=== PATIENT | female | born 1955 | race Asian ===

== ENCOUNTER 2019-04-10 17:08 | Emergency (ER) | payer SELFPAY ==
[~2019-04-10] VITALS: Ht 157.5 cm; Wt 54.4 kg
[2019-04-10] MEDS ORDERED: NKM (17:16)
[2019-04-10 17:22] VITALS: BP 121/79
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
[2019-04-10] MEDS ORDERED: ELIQUIS2.5 MG PO (17:38)
[2019-04-10] MEDS ORDERED: Acetaminophen 500mg (ES) tab ORAL ONE (17:45)
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
--- NOTE | 2019-04-10 17:55 | NUR ---
ED Nurse Note: pt went to ct with tech
--- NOTE | 2019-04-10 18:05 | NUR ---
ED Nurse Note: pt went back from ct with tech
[2019-04-10] MEDS ORDERED: Isovue-370 150ml vial INJ PRN (18:30)
--- NOTE | 2019-04-10 18:41 | Diagnostic Imaging Report ---
Indication: Status post trauma Technique: Continuous helical CT scanning of the head was performed utilizing automated exposure control without intravenous contrast material. Axial and coronal reconstructions were obtained. COMPARISON: None available CT dose: Total DLP 1611.53 mGycm; CTDI vol 70.38,9.06 mGy FINDINGS: There is no acute intracranial hemorrhage, mass effect or cortical edema. There are patchy subcortical and periventricular white matter hypodensities, likely representing chronic ischemic microvascular disease. No hydrocephalus. There is left occipital cortical irregularity with apparent medication of the left lateral ventricle with the quadrigeminal cistern. There are scattered coarse calcifications in the supratentorial cortex, which are nonspecific and may be related to prior infection/inflammation.. The posterior fossa and fourth ventricle are unremarkable. Sellar and suprasellar regions are grossly unremarkable. Mastoid air cells are clear. There is mild bilateral maxillary sinus mucosal thickening. No focal lesions of the bony calvarium or soft tissues of the scalp are seen. IMPRESSION: 1. No acute intracranial hemorrhage, mass effect, or acute territorial infarct. 2. Cortical irregularity of the left occipital lobe which may represent encephalomalacia from old infarct versus cortical migration developmental abnormality such as schizencephaly. MRI brain with contrast is recommended in the absence of recent MRI studies for comparison. These findings are concordant with the [facility] preliminary report. The CT scanner at [facility] is accredited by the [employer] and the scans are performed using protocols designed to limit radiation exposure to as low as reasonably achievable to attain images of sufficient resolution adequate for diagnostic evaluation.
--- NOTE | 2019-04-10 18:45 | Diagnostic Imaging Report ---
CT CERVICAL SPINE WITHOUT CONTRAST AND CT THORACIC SPINE WITHOUT CONTRAST INDICATION: Pain status post trauma. Technique: CT cervical spine was performed utilizing automated exposure control without intravenous contrast material. Axial and coronal images were generated. CT dose: Total DLP 535 + 1611 mGycm; CTDI vol .25 + .25 + 13.52 + 0.15 + 70.38 + 9.06 mGy COMPARISON: Same day CT head, same-day CTA chest FINDINGS: CERVICAL SPINE: Bones are diffusely demineralized. Normal cervical lordosis is reversed, which may be partly positional. Atlantodental intervals are preserved. Dens is intact. No acute fracture or subluxation. Vertebral body heights are preserved. There are multilevel discogenic degenerative changes characterized by endplate osteophyte formation, subchondral sclerosis, and uncovertebral hypertrophy leading to multilevel foraminal narrowing, most prominent at the levels of C4-C5. THORACIC SPINE: Alignment is anatomic. Bones are diffusely demineralized. No acute fracture or subluxation. No spondylolisthesis. Vertebral body heights are preserved. There are mild multilevel discogenic degenerative changes characterized by endplate osteophyte formation. No prevertebral soft tissue swelling. ADDITIONAL FINDINGS: Please refer to separately dictated CT chest for thoracic findings. Please refer to separately dictated same day CT head for intracranial findings. IMPRESSION: No acute fracture or malalignment in the cervical or thoracic spines. These findings are concordant with the [facility] preliminary report. The CT scanner at [facility] is accredited by the [employer] and the scans are performed using protocols designed to limit radiation exposure to as low as reasonably achievable to attain images of sufficient resolution adequate for diagnostic evaluation.
[2019-04-10 18:46] LABS: BASOPHILS % (AUTO) 1.2 % (0.0-2.0); EOSINOPHILS % (AUTO) 1.6 % (0.0-3.0); HEMATOCRIT 38.6 % (37.0-47.0); LYMPHOCYTES % (AUTO) 26.7 % (20.0-45.0); MEAN CORPUSCULAR VOLUME 91 FL (80-99); MONOCYTES % (AUTO) 9.7 % (1.0-10.0); NEUTROPHILS % (AUTO) 60.8 % (45.0-75.0); PLATELET COUNT 168 K/UL (150-450); RED BLOOD COUNT 4.22 M/UL (4.20-5.40); WHITE BLOOD COUNT 4.5 K/UL (4.8-10.8)
--- NOTE | 2019-04-10 18:49 | Diagnostic Imaging Report ---
Indication: Reason For Exam: INJ Technique: Single AP view of the chest. Comparison: Same day CT chest Findings: The cardiomediastinal silhouette is obscured by herniated abdominal contents and opacification and opacification of the left hemithorax.. Right lung is clear. No right pneumothorax or right pleural effusion. No acute osseous abnormality. IMPRESSION: Clear right lung. Complete opacification of the left hemithorax with herniation of the abdominal organs, presumably postsurgical.
[2019-04-10 18:54] LABS: ANION GAP 3 mmol/L (5-15); BLOOD UREA NITROGEN 16 mg/dL (7-18); CALCIUM 9.4 MG/DL (8.5-10.1); CARBON DIOXIDE 30 MMOL/L (21-32); CHLORIDE 107 MMOL/L (98-107); CREATININE 0.7 MG/DL (0.55-1.30); POTASSIUM 3.9 MMOL/L (3.5-5.1); SODIUM 140 MMOL/L (136-145)
[2019-04-10 18:57] LABS: ALANINE AMINOTRANSFERASE 26 U/L (12-78); ALBUMIN 4.1 G/DL (3.4-5.0); ALBUMIN/GLOBULIN RATIO 1.3 (1.0-2.7); ALKALINE PHOSPHATASE 57 U/L (46-116); ASPARTATE AMINO TRANSFERASE 23 U/L (15-37); BILIRUBIN,TOTAL 0.5 MG/DL (0.2-1.0)
[2019-04-10 19:00] VITALS: BP 115/75
--- NOTE | 2019-04-10 19:08 | NUR ---
ED Nurse Note: pt went to ct with tech
--- NOTE | 2019-04-10 19:10 | NUR ---
ED Nurse Note: Recieved report from julieta Novak to resume care, pt is currently being taken down to imaging department for x-rays, pt is on [facility] awake, alert and oriented x 4, saline lcok intact and patent in right forearm area, pt has c-collar on, pt c/o pain at 7/10, recently medicated, will monitor for effectiveness and resume care when pt returns to departmen.
[2019-04-10 19:50] VITALS: BP 138/63
--- NOTE | 2019-04-10 20:21 | Diagnostic Imaging Report ---
CT ANGIOGRAM OF THE CHEST, ABDOMEN, AND PELVIS INDICATION: Trauma Technique: CT angiogram performed utilizing automated exposure control with intravenous contrast from the lower neck to the thighs. Axial, sagittal and coronal reconstructions were obtained. 3-D volumetric reconstructions were also performed. CT dose: Total DLP 600 mGycm; CTDI vol 0.15 + 8.11 + 73.00 + 8.63 mGy COMPARISON: None available FINDINGS: Pulmonary vasculature: Opacification of pulmonary arteries is excellent. Status post ligation of the left main pulmonary artery and resection of its branches. Main pulmonary artery is enlarged, measuring up to 3.2 cm. No pulmonary embolus. Lungs and pleura: Status post left pneumonectomy with associated postsurgical appearance including volume loss with subsequent shift of the mediastinal structures into the left hemithorax. . There is a 3 x 1.1 cm thick-walledcollection in the pneumonectomy bed. There is herniation of the abdominal organs including the stomach, spleen, and nonobstructed loops of colon into the left hemithorax. Mild right apical scarring. There is a solid 5 mm right apical nodule (6:11). There are clusters of tree in bud nodules with scattered subcentimeter pulmonary nodules, predominantly peripheral, with mosaic attenuation. No airspace consolidation. No pleural fluid. Heart and mediastinum: Mild cardiomegaly. Airway: Patent, without debris. Status post ligation of the left mainstem bronchus. Hepatobiliary:: Unremarkable Genitourinary:: Bilateral cortical irregularity of the kidneys may be developmental versus sequelae of small infarcts. Adrenals:: Unremarkable Pancreas:: Unremarkable Gastrointestinal:: No evidence of obstruction. Appendix is normal. Spleen: : Unremarkable Peritoneum:: Trace free fluid in the pelvis, likely physiologic. Lymph nodes: No pathologically enlarged lymph nodes. Vasculature:: No evidence of dissection or aneurysm. There is mild aortoiliac atherosclerotic calcification. Bones and soft tissues:: There are multilevel discogenic degenerative changes of the visualized spine. No acute fractures. IMPRESSION: 1. No evidence of solid organ injury, acute fracture, or dislocation. 2. Status post left pneumonectomy with associated volume loss; thick walled left apical collection may be postoperative ex vacuo pleural fluid versus chronic organized abscess. 3. Evidence of infectious/inflammatory small airways disease. 4. 5 mm right apical nodule which may be infectious/inflammatory, however high-risk patients, follow-up CT in one year is recommended. These findings are concordant with the [facility] preliminary report. The CT scanner at [facility] is accredited by the [employer] and the scans are performed using protocols designed to limit radiation exposure to as low as reasonably achievable to attain images of sufficient resolution adequate for diagnostic evaluation.
[2019-04-10 21:00] VITALS: BP 129/74
[2019-04-10] MEDS ORDERED: IBUPROFEN600 MG ORAL (21:05)
[2019-04-10] MEDS ORDERED: ACETAMINOPHEN325 M1 ORAL (21:05)
[2019-04-10] MEDS ORDERED: ROBAXIN-750750 MG PO (21:05)
--- NOTE | 2019-04-10 21:05 | NUR ---
ED Nurse Note: MD at bedside discussing pt results, pt spouse and daughter at bedside also, pt c-collar removed by md, pt is being d/c to home, awake, alert and oriented x 4, pt continues to c/o severe pain at 7/10 and asked md for meds before leaving, pt medicated with toradol, iv line removed without complications, pt is ambulatory, given f/u info and after care instructions and all parties re-verbalize s/s to monitor for and importance of f/u with pmd, nad noted during pt d/c to home, armband and iv line removed without complications.
[2019-04-10] MEDS ORDERED: Ketorolac 30mg Inj IV ONE (21:15)
[2019-04-10 21:20] VITALS: BP 129/74
== END 2019-04-10 21:20 | disposition home or self-care (01) ==
LOC: EDBD 17:08 → EMR 18:40
DX: R51 Headache (principal); M54.2 Cervicalgia; R07.9 Chest pain, unspecified; M54.9 Dorsalgia, unspecified; V43.52XA Car driver injured in collision with other type car in traffic accident, initial encounter; Y92.410 Unspecified street and highway as the place of occurrence of the external cause; I48.91 Unspecified atrial fibrillation
CPT/HCPCS: 36415; 70450; 71045; 71275; 72125; 72128; 74174; 80053; 83690; 84484; 85025; 85610; 85730; 93005; 96374; 96375; 99284; J1885; J2405; Q9967